=== PATIENT | female | born 1985 | race Caucasian/White ===

== ENCOUNTER → 2017-08-30 | Outpatient (CLI) | payer BC ==
--- NOTE | 2017-08-30 11:24 | MM ---
Reason for exam: clinical finding. Baseline mammogram. History: Took hormonal contraceptives beginning at age 19. Physical Findings: Nurse did not find any significant physical abnormalities on exam. MG Diagnostic Mammo w CAD ASHVIN Bilateral CC and MLO view(s) were taken. The breast tissue is heterogeneously dense. This may lower the sensitivity of mammography. There is no discrete abnormality. These results were verbally communicated with the patient and result sheet given to the patient on 08/30/17. ASSESSMENT: Negative, BI-RAD 1 RECOMMENDATION: Routine screening mammogram of both breasts at age 40.
--- NOTE | 2017-08-30 11:25 | USB ---
Reason for exam: clinical finding. History: Took hormonal contraceptives beginning at age 19. US Breast RT Right breast ultrasound includes all four quadrants, the retroareolar region and axilla. Finding demonstrates two oval, cystic lesions measuring 0.5 x 0.4 x 0.3cm at 12 o'clock and 0.4 x 0.3 x 0.3cm at 8 o'clock. These results were verbally communicated with the patient and result sheet given to the patient on 08/30/17. ASSESSMENT: Benign, BI-RAD 2 RECOMMENDATION: Routine screening mammogram of both breasts at age 40.
== END | disposition home or self-care (01) ==
LOC: RADMAMWWP 08:18
PROVIDERS: ATTEND Family Medicine
DX: N63.10 Unspecified lump in the right breast, unspecified quadrant (principal); N63.20 Unspecified lump in the left breast, unspecified quadrant
CPT/HCPCS: 77066

== ENCOUNTER 2021-02-09 10:22 | Emergency (ER) | payer BC ==
--- NOTE | 2021-02-09 11:08 | ED ---
Skin/Abscess/FB HPI - General Chief complaint: Skin/Abscess/Foreign Body Stated complaint: fever Time Seen by Provider: 02/09/21 10:47 Source: patient, RN notes reviewed Mode of arrival: ambulatory Limitations: no limitations - History of Present Illness Initial comments: 35-year-old female presents to the ED for three week history of left inner gluteal cleft abscess. Patient describes discomfort, that has not gotten better with antibiotic course of Bactrim which will be finished on Saturday. Patient reports recent fever but denies vomiting or nausea or any paresthesias to area. Reported pain with sitting, and bowel movements. - Related Data Home Medications Medication Instructions Recorded Confirmed Ibuprofen [Motrin Ib] 600 mg PO Q8H PRN 02/09/21 02/09/21 Sulfamethox-Tmp 800-160Mg [Bactrim 1 tab PO BID 02/09/21 02/09/21 DS 800-160 mg] Previous Rx's Medication Instructions Recorded Clindamycin HCl 300 mg PO Q6HR #40 cap 02/09/21 Allergies Allergy/AdvReac Type Severity Reaction Status Date / Time amoxicillin Allergy Rash/Hives Verified 02/09/21 11:13 cephalexin [From Keflet] Allergy Rash/Hives Verified 02/09/21 11:13 Penicillins Allergy Rash/Hives Verified 02/09/21 11:13 Review of Systems ROS Statement: Those systems with pertinent positive or pertinent negative responses have been documented in the HPI. ROS Other: All systems not noted in ROS Statement are negative. 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 Past Surgical History: No Surgical Hx Reported Past Psychological History: No Psychological Hx Reported Smoking Status: Never smoker Past Alcohol Use History: None Reported Past Drug Use History: None Reported General Exam Limitations: no limitations Course Vital Signs 02/09/21 10:27 Temperature 98.8 F Pulse Rate 78 Respiratory 18 Rate Blood Pressure 134/86 O2 Sat by Pulse 97 Oximetry Procedures - Incision & Drainage Consent Obtained: written consent Site: buttock Size (cm): 1 Anesthetic Used: lidocaine 1% Amount (mLs): 5 Sterile Field Used?: No Scalpel Used: #11 I&D Drainage Obtained: Blood Culture Obtained?: No Patient Tolerated Procedure: well, no complications Medical Decision Making - Medical Decision Making Patient will be started on clindamycin, warm compresses, soaks patient follow-up for recheck and return for any worsening change in symptoms. Disposition Clinical Impression: Abscess of buttock Disposition: HOME SELF-CARE Condition: Stable Instructions (If sedation given, give patient instructions): Abscess (ED) Additional Instructions: Please return to the Emergency Department if symptoms worsen or any other concerns. Prescriptions: Clindamycin HCl 300 mg PO Q6HR #40 cap Is patient prescribed a controlled substance at d/c from ED?: No Referrals: Yesika Munoz MD [Primary Care Provider] - 1-2 days Time of Disposition: 12:18
[2021-02-09] MEDS ORDERED: LIDOCAINE 1% INJ 10MG/ML (20 ML MDV) SQ ONE (11:12)
[2021-02-09 12:39] VITALS: BP 132/80; PULSE 76; RESP 20; TEMP 98.2
== END 2021-02-09 12:30 | disposition home or self-care (01) ==
LOC: EC 10:22
DX: L02.31 Cutaneous abscess of buttock (principal); Z88.0 Allergy status to penicillin; Z88.1 Allergy status to other antibiotic agents
CPT/HCPCS: 99282; 10060; J2001

== ENCOUNTER 2024-04-08 17:45 | Emergency (ER) | payer BC ==
--- NOTE | 2024-04-08 18:45 | ED ---
ENT HPI - General Chief complaint: ENT Stated complaint: vertigo, ear inf Time Seen by Provider: 04/08/24 18:00 Source: patient, RN notes reviewed Mode of arrival: ambulatory Limitations: no limitations - History of Present Illness Initial comments: This is a 39-year-old female presenting with right ear pain (2/10) and dizziness/vertigo x 5 days. Patient endorses symptoms moving into left ear. Endorses sensation of room spinning and nausea. Describes pain as pressure/ringing. Endorses receiving steroids, Zofran and eardrops from an urgent care with minimal relief. Denies fever, chills, chest pain, dyspnea, abdominal pain, vomiting/diarrhea. Onset/Timin -: days(s) Location: R ear Severity scale (1-10): 2 Quality: other (Pressure) Consistency: constant - Related Data Home Medications Medication Instructions Recorded Confirmed Ibuprofen [Motrin Ib] 600 mg PO Q8H PRN 02/09/21 02/09/21 Sulfamethox-Tmp 800-160Mg [Bactrim 1 tab PO BID 02/09/21 02/09/21 DS 800-160 mg] Previous Rx's Medication Instructions Recorded clindamycin HCL [Clindamycin HCl] 300 mg PO Q6HR #40 cap 02/09/21 Meclizine [Antivert] 25 mg PO TID PRN #20 tab 04/08/24 Allergies Allergy/AdvReac Type Severity Reaction Status Date / Time amoxicillin Allergy Rash/Hives Verified 04/08/24 18:19 cephalexin [From Keflet] Allergy Rash/Hives Verified 04/08/24 18:19 Penicillins Allergy Rash/Hives Verified 04/08/24 18:19 Review of Systems ROS Statement: Those systems with pertinent positive or pertinent negative responses have been documented in the HPI. ROS Other: All systems not noted in ROS Statement are negative. 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 Past Surgical History: No Surgical Hx Reported Past Psychological History: No Psychological Hx Reported Smoking Status: Never smoker Past Alcohol Use History: None Reported Past Drug Use History: None Reported General Exam Limitations: no limitations General appearance: alert, in no apparent distress Head exam: Present: atraumatic, normocephalic, normal inspection Eye exam: Present: normal appearance, PERRL, EOMI, other (Hints exam negative. Patient notes increased dizziness with right side [place] without nystagmus.). Absent: scleral icterus, conjunctival injection, periorbital swelling ENT exam: Present: normal exam, mucous membranes moist, other (Positive right TM air-fluid levels without TM erythema or bulging) Neck exam: Present: normal inspection. Absent: tenderness, meningismus, lymphadenopathy Respiratory exam: Present: normal lung sounds bilaterally. Absent: respiratory distress, wheezes, rales, rhonchi, stridor Cardiovascular Exam: Present: regular rate, normal rhythm, normal heart sounds. Absent: systolic murmur, diastolic murmur, rubs, gallop, clicks GI/Abdominal exam: Present: soft, normal bowel sounds. Absent: distended, tenderness, guarding, rebound, rigid Extremities exam: Present: normal inspection, full ROM, normal capillary refill. Absent: tenderness, pedal edema, joint swelling, calf tenderness Back exam: Present: normal inspection Neurological exam: Present: alert, oriented X3, CN II-XII intact Psychiatric exam: Present: normal affect, normal mood Skin exam: Present: warm, dry, intact, normal color. Absent: rash Course Vital Signs 04/08/24 04/08/24 18:17 19:45 Pulse Rate 114 H 93 Respiratory 20 16 Rate Blood Pressure 144/94 121/79 O2 Sat by Pulse 98 100 Oximetry Medical Decision Making - Medical Decision Making Was pt. sent in by a medical professional or institution (, PA, [employer] INST[employer]ER, urgent care, hospital, or senior care...) When possible be specific @ -No Did you speak to anyone other than the patient for history (EMS, parent, family, police, friend...)? What history was obtained from this source @ -No Did you review nursing and triage notes (agree or disagree)? Why? @ -I reviewed and agree with nursing and triage notes Were old charts reviewed (outside hosp., previous admission, EMS record, old EKG, old radiological studies, urgent care reports/EKG's, senior care records)? Report findings @ -No old charts were reviewed Differential Diagnosis (chest pain, altered mental status, abdominal pain women, abdominal pain men, vaginal bleeding, weakness, fever, dyspnea, syncope, headache, dizziness, GI bleed, back pain, seizure, CVA, palpatations, mental health, musculoskeletal)? @ -Differential Dizziness: Benign paroxysmal positional Vertigo, Meniere's disease, otitis media, acoustic neuroma, vertebrobasilar insufficiency, cerebellar stroke, encephalitis, hypovolemic, arrhythmia, coronary artery syndrome, anemia, this is not meant to be an all-inclusive list EKG interpreted by me (3pts min.). @ -Not done X-rays interpreted by me (1pt min.). @ -None done CT interpreted by me (1pt min.). @ -None done U/S interpreted by me (1pt. min.). @ -None done What testing was considered but not performed or refused? (CT, X-rays, U/S, labs)? Why? @ -None What meds were considered but not given or refused? Why? @ -None Did you discuss the management of the patient with other professionals (professionals i.e. , PA, [employer] INST[employer]ER, lab, RT, psych nurse, oncology social worker, learning support resource room teacher, teacher, protective officer, counseling case manager)? Give summary @ -No Was smoking cessation discussed for >3mins.? @ -No Was critical care preformed (if so, how long)? @ -No Were there social determinants of health that impacted care today? How? (Homelessness, low income, unemployed, alcoholism, drug addiction, transportation, low edu. Level, literacy, decrease access to med. care, long-term, rehab)? @ -No Was there de-escalation of care discussed even if they declined (Discuss DNR or withdrawal of care, Hospice)? DNR status @ -No What co-morbidities impacted this encounter? (DM, HTN, Smoking, COPD, CAD, Cancer, CVA, ARF, Chemo, Hep., AIDS, mental health diagnosis, sleep apnea, morbid obesity)? @ -None Was patient admitted / discharged? Hospital course, mention meds given and route, prescriptions, significant lab abnormalities, going to OR and other pertinent info. @ -Attempted Emre maneuver with some relief noted by patient. P.o. meclizine provided for dizziness with additional meclizine sent to patient pharmacy. Advised [id number] Sudafed and Flonase nasal spray for symptoms. Advised to continue Emre maneuver at home for ongoing symptoms. Advised follow-up with primary care if symptoms persist. Undiagnosed new problem with uncertain prognosis? @ -No Drug Therapy requiring intensive monitoring for toxicity (Heparin, Nitro, Insulin, Cardizem)? @ -No Were any procedures done? @ -No Diagnosis/symptom? @ -Serous otitis media, BPPV Acute, or Chronic, or Acute on Chronic? @ -Acute Uncomplicated (without systemic symptoms) or Complicated (systemic symptoms)? @ -Complicated Side effects of treatment? @ -No Exacerbation, Progression, or Severe Exacerbation? @ -No Poses a threat to life or bodily function? How? (Chest pain, [place], [place], pneumonia, PE, COPD, DKA, ARF, appy, cholecystitis, CVA, Diverticulitis, Homicidal, Suicidal, threat to staff... and all critical care pts) @ -No Disposition Clinical Impression: Acute serous otitis media, BPPV (benign paroxysmal positional vertigo) Disposition: HOME SELF-CARE Condition: Good Instructions (If sedation given, give patient instructions): Benign Paroxysmal Positional Vertigo (ED), Fluid In The Ear (Serous Otitis Media) (ED) Prescriptions: Meclizine [Antivert] 25 mg PO TID PRN #20 tab PRN Reason: Vertigo Is patient prescribed a controlled substance at d/c from ED?: No Referrals: Eve Delgadillo MD [Primary Care Provider] - 1-2 days Time of Disposition: 18:45
[2024-04-08] MEDS: MECLIZINE 12.5 MG TAB PO STA (19:00)
[2024-04-08 19:47] VITALS: BP 121/79; PULSE 93; RESP 16
== END 2024-04-08 19:46 | disposition home or self-care (01) ==
LOC: EC 17:45
DX: H65.01 Acute serous otitis media, right ear (principal); H81.10 Benign paroxysmal vertigo, unspecified ear; Z88.0 Allergy status to penicillin; Z88.1 Allergy status to other antibiotic agents
CPT/HCPCS: 99283

== ENCOUNTER → 2024-06-02 | Outpatient (CLI) | payer BC ==
--- NOTE | 2024-06-02 10:04 | MR ---
EXAMINATION TYPE: MR iac wo/w con DATE OF EXAM: 06/02/2024 9:06 AM COMPARISON: None. CLINICAL INDICATION: Female, 39 years old with history of R42 DIZZINESS AND GIDDINESS, Vertigo, imbal ance, blockage in right ear. TECHNIQUE: Multiplanar, multisequence images of the brain and brainstem were acquired before IV cont rast. Diffusion weighted imaging was performed. Additional coned-down sequences through the internal auditory canals and posterior cranial fossa before and after IV contrast administration. IV Contrast: 6 cc Gadobutrolk FINDINGS: Diffusion weighted images demonstrate no evidence of an acute ischemic lesion in the brain. T2/FLAIR weighted sequences show a solitary punctate bright signal focus subcortical lateral left fro ntal lobe likely trace early burden of chronic small vessels disease. Midline structures demonstrate normal morphology. The craniocervical junction is normal. Brain volume and ventricular caliber is normal. There is no evidence of an acute intracranial hemorrhage, infarct, mass, mass-effect or an extra-axia l fluid collection. There is no cerebellopontine angle mass. The internal auditory canals are symmetric. Brainstem and skull base abnormalities are not seen. Post contrast images demonstrate no evidence of pathologic enhancement in the posterior cranial rosalva a or the internal auditory canals. There is no abnormal enhancement of the labyrinths. Small amount of fluid inferior right mastoid air cells. Moderate mucosal thickening ethmoid air cells. Globes are intact. IMPRESSION: 1. Small amount of fluid within the inferior right mastoid air cells of proximal clinical significanc e. Correlate for any mastoid pain to exclude mastoiditis. 2. Otherwise, no specific abnormality in acoustic MRI. 3. Moderate chronic ethmoid sinus disease. [facility], , 06/02/2024 10:02 AM
== END | disposition home or self-care (01) ==
LOC: RADMRIMAIN 08:17
PROVIDERS: ATTEND Otolaryngology
DX: Z01.812 Encounter for preprocedural laboratory examination (principal); J32.2 Chronic ethmoidal sinusitis; R42 Dizziness and giddiness; R26.89 Other abnormalities of gait and mobility; H74.8X3 Other specified disorders of middle ear and mastoid, bilateral
CPT/HCPCS: 70553; A9585

== ENCOUNTER → 2024-12-03 | Outpatient (CLI) | payer BC ==
--- NOTE | 2024-12-03 14:00 | US ---
EXAMINATION TYPE: US pelvis complete transvag DATE OF EXAM: 12/03/2024 COMPARISON: NONE CLINICAL INDICATION: Female, 39 years old with history of N946 SYSMENORRHEA; Abnormal menses TECHNIQUE: Transvaginal (TV) and Transabdominal (TA) . Transabdominal grayscale sonographic images of the pelvis were acquired. Transvaginal sonographic im ages were medically necessary to better assess the following anatomy: Uterus and ovaries Doppler imaging: Not performed. FINDINGS: Date of LMP: now EXAM MEASUREMENTS: Uterus: 10.1 x 5.2 x 5.9 cm Endometrial Stripe: .7 cm Right Ovary: 1.9 x 1.9 x 2.4 cm Left Ovary: 1.7 x 2.7 x 2.0 cm 1. Uterus: Anteverted wnl 2. Endometrium: wnl 3. Right Ovary: wnl 4. Left Ovary: wnl 5. Bilateral Adnexa: wnl 6. Posterior cul-de-sac: wnl IMPRESSION: No significant abnormality. O-RADS 2021 [email or web address] [facility], , 12/03/2024 1:58 PM
== END | disposition home or self-care (01) ==
LOC: RADUSWWP 09:29
PROVIDERS: ATTEND Family Medicine
DX: R10.2 Pelvic and perineal pain (principal)
CPT/HCPCS: 76830; 76856